=== PATIENT | female | born 1990 ===

== ENCOUNTER 2021-08-14 07:45 | Inpatient (IN) | payer OTHER ==
[~2021-08-14] VITALS: Ht 154.9 cm; Wt 54.9 kg
== END 2021-08-22 12:13 | disposition home or self-care (01) | DRG 743 ==
LOC: O/R 08-20 05:30 → OB/GYN 08-20 05:30 → SURH 08-20 07:00 → OB/GYN 08-20 10:30 → O/R 08-21 14:34 → OB/GYN 08-21 14:36
PROVIDERS: ADMIT Obstetrics & Gynecology; ATTEND Obstetrics & Gynecology
PROC: 0DNU0ZZ Release Omentum, Open Approach (ICD-10-PCS; 2021-08-20)
PROC: 0DN80ZZ Release Small Intestine, Open Approach (ICD-10-PCS; 2021-08-20)
PROC: 0UT90ZZ Resection of Uterus, Open Approach (ICD-10-PCS; principal; 2021-08-20 07:00)
DX: N80.0 Endometriosis of uterus (principal); N72 Inflammatory disease of cervix uteri; N93.8 Other specified abnormal uterine and vaginal bleeding; N73.6 Female pelvic peritoneal adhesions (postinfective); N99.4 Postprocedural pelvic peritoneal adhesions; R10.2 Pelvic and perineal pain